=== PATIENT | female | born 1950 | race Caucasian/White ===

== ENCOUNTER → 2024-10-09 12:13 | Outpatient (AMB) | payer MEDICARE, SELFPAY ==
--- NOTE | 2024-10-09 12:18 | A.OFFVIS_ITS ---
VS Expanded 10/09/24 12:20 10/09/24 12:35 Height 5 ft 4 in 5 ft 4 in Weight 171 lb 8.314 oz 172 lb BMI 29.4 29.5 Intake Visit Reasons: Weight loss Nutrition Presentation Details: Pt presents for MNT for assistance with weight loss. Pt reports having met with RD in the past and is working on reading food labels and choosing protein rich foods. Pt reports main concern is increased appetite at night Wt a yr ago 150-160lbs Has 3 meals/d and 2-4 snacks B: oatmeal with fruit and lactose free milk L: leftover dinner D 5:30-6 pm meat/potato/[place] sprouts 8 pm: snacks (fuit, cereal, pretzels, yogurts physical activity : pilates, water aerobics, rowing machine participates in PA 3 x/wk 30 -45 min take MVI BS Monitoring Most Recent Diabetes Results: No Data to Display EBV-Lswhnzw-Hq.Jeor Equation Height: 5 ft 4 in Weight: 172 lb Resting Metabolic Rate: 1280.16 Calculated Activity Level: Mild Activity Calories Needed to Maintain Weight: 1760.22 Diagnosis Nutrition problem #1: overweight/obesity As related to (etiology) #1: excess energy intake As evidenced by (sign/symptom) #1: food recall Assessment & Plan Assessment & Plan (1) Obesity (BMI 30.0-34.9): Code(s): E66.811 - Obesity, class 1 Category: Medical Plan: Wt: 78Kg ( 10/28 ) Est kcal needs as per MSJ: 1800 (40% carb, 30% protein/fat) Est fluid needs as per 25-30 ml/d: 2300 Est prot per day as per 1 g/kg bw: 78 Recommend fiber intake : 8-10 g per day and gradually increase to 25-28 g per day for women and 35-38 g for men or as tolerated Recommend sodium intake per day : less than 2300 mg Educated patient on: ( R = reviewed V = verbalizes understanding N/R = needs review N/A = not applicable * Food sources of carbohydrate, adequate serving sizes and its role in various health conditions: R * Differences between complex carbohydrates a simple carbohydrates, role of fiber in diet: R V * Lean protein sources of foods: R V * Differences between types of fats and role in diet (mono on saturated fat fatty acids, saturated fatty acids, trans fats): R V N/R * Food sources of sodium in salt and healthy modifications for heart health in kidney health: R V R/V * Vitamins and minerals: R V N/R * Healthy plate method concept: R * Physical activity: Benefits a precaution: R V Patient Instructions: Continue working on choosing nutrient dense foods as established following healthy plate method Work on calorie goal 4413-8574/day , measure food portion sizes for better estimate of caloric intake keep hydrated by having water with meals/snacks/in between/as needed Coding Level of Care Code Nutr Indiv Intake (00661) Diagnoses Obesity (BMI 30.0-34.9) E66.811 Time Spent (min) 30
[2024-10-09 12:20] VITALS: BMI 29.4
[2024-10-23 11:14] VITALS: BMI 29.5
== END ==
PROVIDERS: PCP Internal Medicine; Visit Provider Dietitian, Registered
DX: E66.811 Obesity, class 1 (principal)

== ENCOUNTER → 2024-10-09 12:13 | Outpatient (BNVA) | payer MEDICARE, BC, SELFPAY | PROVIDERS: PCP Internal Medicine; Visit Provider Dietitian, Registered | DX: E66.811 Obesity, class 1 (principal); Z71.3 Dietary counseling and surveillance; Z68.29 Body mass index [BMI] 29.0-29.9, adult | CPT/HCPCS: 97802 ==

== ENCOUNTER → 2024-11-13 13:02 | Outpatient (BNVA) | payer MEDICARE, SELFPAY | PROVIDERS: PCP Internal Medicine; Visit Provider Dietitian, Registered | DX: E66.811 Obesity, class 1 (principal); Z71.3 Dietary counseling and surveillance; Z68.30 Body mass index [BMI] 30.0-30.9, adult | CPT/HCPCS: 97803 ==

== ENCOUNTER → 2024-11-13 13:02 | Outpatient (AMB) | payer MEDICARE, SELFPAY ==
[2024-11-13 13:10] VITALS: BMI 30.2
--- NOTE | 2024-11-13 13:10 | A.OFFVIS_ITS ---
VS Expanded 11/13/24 13:10 Height 5 ft 4 in Weight 175 lb 11.335 oz BMI 30.2 Intake Visit Reasons: weightloss Nutrition Presentation Details: Pt presents for MNT f/u for obesity Pt reports challenges with diet medications d/t traveling this past month reports including protein in meals is helping with satiety fluid 6-8 c water/day night eating, choosing smaller cups milk/cereal BS Monitoring Most Recent Diabetes Results: No Data to Display Assessment & Plan Assessment & Plan (1) Obesity (BMI 30.0-34.9): Code(s): E66.811 - Obesity, class 1 Category: Medical Plan: Wt: 78Kg ( 10/28 ), 80 (11/25) Est kcal needs as per MSJ: 1800 -250/400 = 1400 (40% carb, 30% protein/fat) Est fluid needs as per 25-30 ml/d: 2300 Est prot per day as per 1 g/kg bw: 78 Recommend fiber intake : 8-10 g per day and gradually increase to 25-28 g per day for women and 35-38 g for men or as tolerated Recommend sodium intake per day : less than 2300 mg Educated patient on: ( R = reviewed V = verbalizes understanding N/R = needs review N/A = not applicable * Food sources of carbohydrate, adequate serving sizes and its role in various health conditions: R * Differences between complex carbohydrates a simple carbohydrates, role of fiber in diet: R V * Lean protein sources of foods: R V * Differences between types of fats and role in diet (mono on saturated fat fatty acids, saturated fatty acids, trans fats): R V N/R * Food sources of sodium in salt and healthy modifications for heart health in kidney health: R V R/V * Vitamins and minerals: R V N/R * Healthy plate method concept: R * Physical activity: Benefits a precaution: R V Patient Instructions: Resume pre planning your meals, measure food portions and keep track of calories goal 4636-0703/day Keep hydrated by having water /fruit infused water Coding Level of Care Code Nutr Indiv Subseq (14697) Diagnoses Obesity (BMI 30.0-34.9) E66.811 Time Spent (min) 20
--- OUTSIDE RECORDS SUMMARY | 2024-11-13 16:25 | XMS_ITS ---
[facility] Address [address] [place] [address] Care Team Providers Care Personnel Consultant Name Role Phone Leland Qureshi MD Primary Care Provider Jd Dotson Asuncion Unavailable [phone] Allergies Allergen (clinical drug ingredient) Drug/Non Drug Allergy documented on EMR Reaction Allergy Type Onset Date Status Benzocaine rash Drug Allergy Active ciprofloxacin Cipro flu like symptoms Drug Allergy Active doxycycline Doxycycline Unknown Drug Allergy Act sun Substance with sulfonamide structure and antibacterial mechanism of action (substance) Sulfa Antibiotics Unknown Drug Allergy Active Banana Banana upset stomach Allergy Active Results Component Value Reference Range Notes X ray : Foot, right 3V Reviewed date:10/01/2024 01:33:06 PM Interpretation:See Examination above Performing Lab: Notes/Report: See Examination above REASON FOR VISIT Heel pain, Painful nail(s) aggravated by shoes causing difficulty standing/walking Medications Medication SIG (Take, Route, Frequency, Duration) Notes Start Date End Date Status Propranolol HCl Acti ve Pantoprazole Sodium 20 MG 1 tablet 1/2 to 1 hour before morning meal Orally Once a day Active Protonix .20 mg 1 tablet Orally Once a day for 30 day(s) Not-Taking Aspirin 81 MG 1 tablet Orally Once a day for 30 day(s) Not-Taking flonase 50 mcg/act as directed Not-Taking Nystatin cream, prn Active Night Splint AFO - L1930 1 wear when at rest for 30 days Active Methylphenidate Acti ve Betamethasone Dipropionate 0.05 % 1 application Externally Once a day Active Betamethasone Valerate 0.1 % 1 application Externally Once a day Active Social History Tobacco Use: Social History Observation Description Date Details (start date - stop date) Never Smoker NA - NA Tobacco use other than smoking: Question Answer Notes Are you an other tobacco user? No Tobacco Control (Standard) Question Answer Notes Tobacco use: Nonsmoker Additional Findings: Tobacco non-user Current no nsmoker AUDIT-C (Standard) Question Answer Notes Did you have a drink contain ing alcohol in the past year? Yes How often did you have a dri nk containing alcohol in the past year? Monthly or less (1 point) How many drinks did you have on a typical day when you were drinking in the past year? Declined to specify (0 point) How often did you have six o r more drinks on one occasion in the past year? 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 ; Pain in right toe(s) M79.674 ; Pain in left toe(s) M79.675 and Nail dystrophy L60.3 Assessments Encounter Date Diagnosis (ICD Code) Assessment Notes Treatment Notes Treatment Clinical Notes Section Notes 10/01/2024 Achilles tendinitis of right lower extremity (ICD-10 - M76.61) Patient Educated with: HEEL CORD STRETCHES.pdf (HEEL CORD STRETCHES.pdf) Patient Educated with: RICE THERAPY.pdf (RICE THERAPY.pdf) 10/01/2024 Pain of right heel (ICD-10 - M79.671) 10/01/2024 Exostosis of right posterior calcaneus (ICD-10 - M77.31) 10/01/2024 Short Achilles tendon (acquired), right ankle (ICD-10 - M67.01) 10/01/2024 Pain in right toe(s) (ICD-10 - M79.674) 10/01/2024 Pain in left toe(s) (ICD-10 - M79.675) 10/01/2024 Nail dystrophy (ICD-10 - L60.3) Plan Of Treatment Medication Medication Name Sig Start Date Stop Date Notes Night Splint AFO - L1930 1 wear when at rest for 30 days Treatment Notes Assessment Notes Achilles tendinitis of right lower extre mity Patient Educated with: HEEL CORD STRETCHES.pdf (HEEL CORD STRETCHES.pdf) Patient Educated with: RICE THERAPY.pdf (RICE THERAPY.pdf) Pending Test Test Name Order Date Nail Panel 10/01/2024 Next Appt Details Follow Up: prn, Reason: Progress Notes * Gayatri RECIO FDOB:1949 (74 yo F)Acc No.[id number]:10/01/2024 Progress Notes Patient:?Gayatri RECIO Provider:?Asuncion Dotson DPM :1950???Age:74 Y???Sex:Female D ate:10/01/2024 Address:[address] [place] [address] , [place], [id number] Pcp:Leland Qureshi MD Subjective: * Chief Complaints: * ???Heel painPainful nail(s) aggravated by shoes causing difficulty standing/walking * HPI: ???Heel pain:?Nature:?tenderness,tight.?Location:?Back of heel, RIGHT.?Duration:?, several months.?Course:?worse.?Aggravated:?standing, walking, walking first thing in the morning/after rest, up and down stairs.?Treatments:?rest/alter normal daily activity.?Painful Nails:?Pt States Last PCP Visit:?Date:?06/27/2024 * ROS:?General/Constitutional:?Nausea?denies.?Vomiting?denies.?Hunger Thirst?denies.?Loss appetite?denies.?Chills?denies.?Fatigue?denies.?Fever?denies.?Night Sweats?denies.?Unexplained weight loss?denies.?Unexplained weight gain?admits.?HEENTM:?Dentures?denies.?Dizziness?denies.?Glasses/contacts?admits.?Retinopathy?de nies.?Blurred/double vision?denies.?TMJ?denies.?Discharge/drainage?denies.?Implants?denies.?Sore throat?denies.?Dental implants?admits.?Hard of hearing ?denies.?Difficulty chewing/swallowing/speaking?denies.?Nose bleeds?denies.?Sore mouth?denies.?Respiratory:?On Oxygen?denies.?Pneumonia/pleurisy?denies.?Bronchitis?denies.?Emphysema?denies.?C oughing?denies.?Cough blood?denies.?Shortness of breath?denies.?Wheezing?denies.?Cardiovascular:?Pacemaker?denies.?MVP?denies.?WPW?denies.?CHF?denies.?Heart attack?denies.?Septal defect?denies.?Rapid beat?denies.?Chest pain ?denies.?Atrial Fib.?denies.?Murmur/Palpitations?denies.?Gastrointestinal:?Hemorrhoids?denies.?Stomach/Abdominal pain?admits.?Dark blood stool?denies.?Irritable bowel ?denies.?Constipation?denies.?Diarrhea?denies.?Hematology:?Swelling?denies.?Clots?denies.?Varicose Veins?denies.?Bruising?denies.?Bleeding problem?denies.?Genitourinary:?Blood urine?denies.?Frequent/Painfu/urination/bladder control?admits.?Kidney stones?denies.?Infection (UTI)?denies.?Nephropathy?denies.?sex trans dis (STD)?denies.?Prostate?denies.?Musculoskeletal:?Hammertoes?denies.?Bunions?denies.?Back Pain?denies.?Muscle Cramps/ Resting?denies.?Muscle cramps / walking?denies.?Generalized aches and pains?admits.?Weakness?denies.?Integ.:?Kohli?denies.?Scars?denies.?Corns/calluses?denies.?Ingrown nails?denies.?Painful nails?,admits.?Open Sores?denies.?Rashes?denies.?Neurologic:?Difficulty sleeping?denies.?Brain disorder?denies.?Numbness?denies.?Balance trouble?denies.?Confusion?denies.?Fainting/blackouts?denies.?Tingling?denies.?Tr emors?denies.? * Medical History:? * Surgical History:? s ection 1979, 1982knee replacement 2019, ataract surgery ental Implant 2020 * Hospitalization/Major Diagno stic Procedure:?Denies Past Hospitalization * Family History:?Mother: dece ased, diagnosed with Other malignant neoplasm of unspecified site.?Father: , diagnosed with Unspecified essential hypertension.?Maternal aunt: diagnosed with Diabetic - NIDDM.?Siblings: diagnosed with Family history of arthritis.?Cousin: diagnosed with Diabetic - NIDDM.? * Social History:?Tobacco Use:?Tobacco use other than smoking?Are you an other tobacco user??No ?Tobacco Control (Standard)?Tobacco use:?Nonsmoker ?Additional Findings: Tobacco non-user?Current nonsmoker ???Drugs/Alcohol:?Drugs?Have you used drugs other than those for medical reasons in the past 12 months? No.?Miscellaneous:?Caffeine: yes, frequency:, 1-2 cups per day. ?Children: yes, two. ?Exercise: yes, golf, tennis, yoga, , gardening/yard work, skiing, canoeing. ?Occupation: retired. ???Drug/Alcohol:?AUDIT-C (Standard)?Did you have a drink containing alcohol in the past year??Yes ?How often did you have a drink containing alcohol in the past year??Monthly or less (1 point) ?How many drinks did you have on a typical day when you were drinking in the past year??Declined to specify (0 point) ?How often did you have six or more drinks on one occasion in the past year??Declined to specify (0 point) ?Points?1 ?Interpretation?Negative * Medications:?TakingBetametha sone Valerate 0.1 % Cream 1 application Externally Once a day Betamethasone Dipropionate 0.05 % Cream 1 application Externally Once a day Nystatin , Notes to Pharmacist: cream, prnMethylphenidate Propranolol HCl Pantoprazole Sodium 20 MG Tablet Delayed Release 1 tablet 1/2 to 1 hour before morning meal Orally Once a day Taking Betamethasone Valerate 0.1 % Cream 1 application Externally Once a day Taking Betamethasone Dipropionate 0.05 % Cream 1 application Externally Once a day Taking Nystatin , Notes to Pharmacist: cream, prnTaking Methylphenidate Taking Propranolol HCl Taking Pantoprazole Sodium 20 MG Tablet Delayed Release 1 tablet 1/2 to 1 hour before morning meal Orally Once a day Not-Taking/PRNAspirin 81 MG Tablet 1 tablet Orally Once a day flonase 50 mcg/act nasal spray as directed Protonix .20 mg Tablet Delayed Release 1 tablet Orally Once a day Medication List reviewed and reconciled with the patientNot-Taking/PRN Aspirin 81 MG Tablet 1 tablet Orally Once a day Not-Taking/PRN flonase 50 mcg/act nasal spray as directed Not-Taking/PRN Protonix .20 mg Tablet Delayed Release 1 tablet Orally Once a day Medication List reviewed and reconciled with the patient * Allergies:?Benzocaine: rashC ipro: flu like symptomsSulfa AntibioticsBanana: upset stomachDoxycyclineyes[Allergies Verified] Objective: * Vitals:?Ht: 5ft 4in, Wt:165, BMI:28.32, Shoe size: 7.5-8, BP:128/80mm Hg, Ht-cm: 162.56 cm, Wt-k.84 kg. * Examination: ???General Examination: ?GENERAL APPEARANCE:?Reveals a pleasant, alert, well nourished, well- developed, well hydrated individual, who demonstrates proper attention to hygiene/body habitus, and is in no acute distress, Pt serves as own historian for office visit today.?ORIENTED:?person, place, and time.?Heel Pain: ?INSPECTION REVEALS:? Pain on palpation to Achilles tendon/bursa with inflammation and swelling present, Pain on palpation to Posterior Superior Aspect Calcaneus, Prominent posterior and posterior/superior heel present, RIGHT.?Orthopedic: ?MUSCLE STRENGTH:?5/5 all groups in a symmetrical fashion, B/L.?GAIT ABNORMALITY:?antalgic.?FOOT MORPHOLOGY:? Decreased Ankle joint dorsiflexion ROM, knee extended.?DIGITAL DEFORMITIES:?Digital contracture, PIPJ, 2-5 B/L, incompl-reducible with WB, or to push-up test, no over, nor underlapping.?Neurological: ?SENSORY:?Neurological exam reveals intact sensorium, pain sensation normal, vibration sensation intact, pinprick sensation is normal in the lower extremities, Pt denies, anesthesia, burning, paresthesia, tingling, B/L.?DEEP TENDON REFLEXES:?Deferred on symptomatic extremity due to discomfort.?Nails: ?NAILS are:?Elongated, overgrown, dystrophic, lytic, greater than 3mm thick, discolored and friable with crumbly malodorous subungual debris, with pain on palpation.?X-Rays - IMAGING REPORT: ?Clinical Indication(s):? Evaluate for Fracture, Evaluate Biomechanical Deformity.?Views:?3 views of Foot, LAT, LO, MO, RIGHT? ?Taken by trained?Podiatric [facility] Carver (?TG ).?Findings:?normal bone and soft tissue density consistent for patients age and sex, increase in soft tissue contour and density at the symptomatic site, ?positive retrocalcaneal exostosis, no coalitions identified.?Fracture:?Negative fractures identified.? Assessment: * Assessment: 1.?Pain of right heel - M79. 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 Plan: * Treatment: 2.?Pain of right heel?Imaging: X ray : Foot, right 3V (Performed Date - 10/01/2024)?See Examination above 3.?Nail dystrophy?LAB: Nail Panel * Procedure Codes:?64541 X-RAY EXAM OF RIGHT FOOT 3V, Modifiers: 26 , RT * Preventive Medicine:? ??Counseling:?Discussion:?-04: Office or other outpatient visit for the evaluation and management of a new patient, which required a medically appropriate history and/or examination and MODERATE level of DECISION MAKING for: 1 OR MORE CHRONIC PROBLEM(S) THATS WORSENING, 2 STABLE CHRONIC PROBLEMS, A NEWLY DIAGNOSED PROBLEM WITH UNCERTAIN PROGNOSIS, AN ACUTE COMPLICATED INJURY WITH MULTIPLE TREATMENT OPTIONS, OR AN ACUTE PROBLEM WITH ACCOMPANYING SYSTEMIC SYMPTOMS, THAT POSE(S) A MODERATE RISK OF MORBIDITY. THIS CONDITION MAY ALSO INCLUDE RX DRUG MANAGEMENT, OR A DECISON FOR MINOR SURGERY. The visit on the day of the encounter encompassed interpreting the data and educating the patient as to the nature of their condition, treatment options available according to their individual PMH, meds, allergies, and overall health/living conditions, as well as any potential risks or complications that may occur from a failure to adhere to, and participate in, the recommended course of therapy. The discussion included a complete verbal, and/or written explanation of the examination results, any x-rays taken, the proposed diagnosis, and outline of the treatment plan. A schedule for future care needs was also explained. The patient verbalized an understanding of the instructions at this time and agreed to be an active participant in their treatment. If the patient should think of any questions or concerns after the visit, I have encouraged the patient to call the office.?Fungal Nail Counseling:?Discussed and recom biopsy to confirm the patients condition.?Heel pain:?ACHILLES: I explained to the patient the possible etiologies of Achilles Tendonitis including foot type/shoegear/activity level/exercise routine and the risks/benefits of all the different treatment options for pain including: No treatment at all, Rest, Ice, NSAIDs(only if well tolerated after meals), New/supportive Shoegear, Strappings and Tapings, Stretching exercises, Deep Tissue Massage, Heel cups/cushions, Arch support/shoe inserts, Custom orthoses, Topical analgesics including Aspercream/Voltaren gel, Night splint/AFO Bracing for stiffness, Cast boot with crutches/cane/or walker for assisted ambulation, Physical Therapy, EPAT/ESWT, Interfil injection therapy, as well as surgical Dallas/Calcanectomy- tendon debridement surgical procedures if needed. Recommendations were made to limit barefoot walking, eliminate wearing nonsupportive shoegear (i.e. flip-flops or sandals, or a shoe with an easily bendable, foldable, or twistable sole) and wear shoegear with a good solid sole, a supportive arch, and plenty of room for an insert/orthotic if necessary. If wearing sandals was required by the patient, we recommended orthopedic sandals such as Orthoheel or Birkenstock even while in the home. If the patient wore heels in the past, we recommended they continue, but eliminate the use of flats. The advantages and disadvantages of each option were discussed and the patients' questions re: shoegear, custom vs prefabricated inserts, activity level, PO vs Topical medications (and their respective potential complications/drug interactions/side effects), and consistency in home treatment regimens for optimal success were answered to their verbally confirmed satisfaction. Literature detailing Achilles Tendonitis and the various treatment options were dispensed and reviewed, The Pt. was counseled on the x-rays, treatment options, and the importance of following all homecare instructions, Recommended a Night Splint to be worn daily for a minimum of 2 hours, Stretching exercises for the patients injury/diagnosis were discussed and demonstrated, Handouts were also given.? ??Screening/Special Tests:?Fall Risk?Screening:?No falls in the past year ?FALLS: Screening for Future Fall Risk?Have you had any falls with injury in the past year??No * Follow Up:?prn * Images: * Sign off status: Completed Addendum: * ? true * Provider:?Asuncion Dotson DPM Date:?2024 Generated for Juliocesar zapata/Disha/Anyitting on:?11/13/2024 04:25 PM EDT History and Physical Notes * HPI (History of Present Illness) Category Sub-Category Detail Notes Category Not es Heel pain Duration: , several months Nature: tenderness,tight Location: Back of heel, RIGHT Aggravated: standing, walking, w alking first thing in the morning/after rest, up and down stairs Course: worse Treatments: rest/alter normal [place] activity Painful Nails Pt States Last PCP Visit: Date:: 06/27/2024 Examination Category Sub-Category Detail Notes Category Not es Heel Pain INSPECTION REVEALS: Pain on palp ation to Achilles tendon/bursa with inflammation and swelling present, Pain on palpation to Posterior Superior Aspect Calcaneus, Prominent posterior and posterior/superior heel present, RIGHT Neurological SENSORY: Neurological exa m reveals intact sensorium, pain sensation normal, vibration sensation intact, pinprick sensation is normal in the lower extremities, Pt denies, anesthesia, burning, paresthesia, tingling, B/L DEEP TENDON REFLEXES: Deferred on sympto matic extremity due to discomfort Orthopedic GAIT ABNORMALITY: antalgic FOOT MORPHOLOGY: Decreased Ankle join t dorsiflexion ROM, knee extended DIGITAL DEFORMITIES: Digital contracture , PIPJ, 2-5 B/L, incompl-reducible with WB, or to push-up test, no over, nor underlapping MUSCLE STRENGTH: 5/5 all groups in a symmetrical fashion, B/L General Examination GENERAL APPEARANCE: Reveals a pleasant, alert, well nourished, well-developed, well hydrated individual, who demonstrates proper attention to hygiene/body habitus, and is in no acute distress, Pt serves as own historian for office visit today ORIENTED: person, place, and t nishi Nails NAILS are: Elongated, overg rown, dystrophic, lytic, greater than 3mm thick, discolored and friable with crumbly malodorous subungual debris, with pain on palpation X-Rays - IMAGING REPORT Findings: normal b one and soft tissue density consistent for patients age and sex, increase in soft tissue contour and density at the symptomatic site, positive retrocalcaneal exostosis, no coalitions identified Fracture: Negative fractures i dentified Views: 3 views of Foot, LAT , LO, MO, RIGHT Taken by trained Podiatric Monument Carver ( TG ) Clinical Indication(s): Evaluate for Fra cture, Evaluate Biomechanical Deformity
--- OUTSIDE RECORDS SUMMARY | 2024-11-13 16:25 | XMS_ITS ---
Author Organization [facility] Address [address] [place] [address] Care Team Providers Care Supervisor [place] Name Role Phone Leland Qureshi MD Primary Care Provider Jd Dotson, Asuncion Unavailable [phone] REASON FOR VISIT BAKO sample Encounters Encounter Location Date Provider Diagnosis [facility] [address] [place] [address] 10/01/2024 Asuncion Dotson Plan Of Treatment No Information Progress Notes * Gayatri RECIO FDOB:1949 (74 yo F)Acc No.[id number]:10/01/2024 Patient:?Gayatri RECIO :1950???Age:74 Y???Sex:Female Address:[address] [place], [address] * true * Date:? Generated for Printi ng/Faxing/eTransmitting on:?11/13/2024 04:25 PM EDT
--- OUTSIDE RECORDS SUMMARY | 2024-11-13 16:25 | XMS_ITS | Patient Health Record ---
[facility] Organization [facility] Address [address] [place] [address] Care Team Providers Care Cotton Program Technician Name Role Phone Kiera PATEL, Leland Primary Care Provider Asuncion Sandy Unavailable [phone] Allergies Allergen (clinical drug ingredient) Drug/Non Drug [...] above Performing Lab: Notes/Report: See Examination above Reason For Referral No Information Medications Medication SIG (Take, Route, Frequency, Duration) Notes Start Date End Date Status Propranolol HCl Acti ve Pantoprazole Sodium 20 MG 1 tablet 1/2 to 1 hour before morning meal Orally Once a day Active Nystatin cream, prn Active Night Splint AFO - L1930 1 wear when at rest for 30 days Active Methylphenidate Acti ve Protonix .20 mg 1 tablet Orally Once a day for 30 day(s) Not-Taking Aspirin 81 MG 1 tablet Orally Once a day for 30 day(s) Not-Taking flonase 50 mcg/act as directed Not-Taking Betamethasone Dipropionate 0.05 % 1 application Externally [...] point) Points 1 Interpretation Negative Vital Signs Blood pressure diastolic 80 mm Hg 10/01/2024 Height 5ft 4in in 10/01/2024 Blood pressure systolic 128 mm Hg 10/01/2024 Weight 165 lbs 10/01/2024 BMI 28.32 kg/m2 10/01/2024 Encounters Encounter [facility] Date [facility] [address] [facility] Asuncion Dotson Achilles tendinitis of right lower extremity M76.61 ; Pain of right heel M79.671 ; 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 ; Short Achilles tendon (acquired), 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 ; Pain in right toe(s) M79.674 ; Pain in left toe(s) M79.675 and Nail dystrophy L60.3 [facility] [address] [place] [address] 10/01/2024 Asuncion Dotson Assessments Encounter Date Diagnosis (ICD Code) Assessment Notes Treatment Notes Treatment Clinical Notes Section Notes 10/01/2024 Pain of right heel (ICD-10 - M79.671) 10/01/2024 Achilles tendinitis of right lower extremity (ICD-10 - M76.61) Patient Educated with: HEEL CORD STRETCHES.pdf (HEEL CORD STRETCHES.pdf) Patient Educated with: RICE THERAPY.pdf (RICE THERAPY.pdf) 10/01/2024 Exostosis of right posterior calcaneus (ICD-10 - M77.31) 10/01/2024 Short Achilles tendon (acquired), right ankle (ICD-10 - M67.01) 10/01/2024 Pain in right toe(s) (ICD-10 - M79.674) 10/01/2024 Pain in left toe(s) (ICD-10 - M79.675) 10/01/2024 Nail dystrophy (ICD-10 - L60.3) Plan Of Treatment Pending Test Test Name Order Date [id number] Destruction, 1-14 05/07/2013 Nail Panel 10/01/2024 Insurance Providers Payer Name Payer Address Payer Phone Subscriber Number Group Number Insured Name Patient Relationship to Insured Coverage Start Date Coverage End Date Medicare [employer] [address] [place] [phone] [id number] Gayatri Recio Self - patient is the insured [address] [facility] [address] [place] [address] [id number] Gayatri Recio Self - patient is the insured Medical (General) History Medical History History ICD Code keloids Anxiety Arthritis Cataracts covid-19 High Blood Pressure Psoriasis/eczema Psychiatric disorder Reflux ( GERD) osteoarthritis Chicken pox Measles Mumps Joint implants/screws Bone implants/screws Surgical History Surgery Date(Month/Year) section 1979, 1982 knee replacement 2019, 2020 cataract surgery 2023 Dental Implant 2020
== END ==
LOC: HO.ENCR 13:02
PROVIDERS: PCP Internal Medicine; Visit Provider Dietitian, Registered
DX: E66.811 Obesity, class 1 (principal)